=== PATIENT | male | born 1980 | race Caucasian/White ===

== ENCOUNTER 2018-08-25 16:24 | Emergency (ER) | payer OTHER ==
[2018-08-25] MEDS: TETRACAINE 0.5% 4 ML OPH RIGHT EYE (16:52)
[2018-08-25] MEDS: OPHTHALMIC IRRIG SOLUTION 120 ML RIGHT EYE ×2 (16:52→17:14)
[2018-08-25] MEDS: FLUORESCEIN STRIP RIGHT EYE (17:14)
== END 2018-08-25 17:44 | disposition home or self-care (01) ==
LOC: FTE 16:24
DX: S05.91XA Unspecified injury of right eye and orbit, initial encounter (principal); X58.XXXA Exposure to other specified factors, initial encounter; Y92.9 Unspecified place or not applicable
CPT/HCPCS: 99283; Z7502